=== PATIENT | male | born 1970 | race Caucasian/White ===

== ENCOUNTER 2018-10-31 20:02 | Emergency (ER) | payer MEDICAID, OTHER ==
[~2018-10-31] VITALS: Ht 180.3 cm; Wt 78.7 kg
[2018-10-31 20:08] VITALS: BP 145/96
--- NOTE | 2018-10-31 20:26 | NUR ---
PT HERE FOR RIGHT SHOULDER PAIN. PT REPORTS THAT HE LIFTED SOMETHING HEAVY. PT REPORTS NO TRUAMA.
[2018-10-31] MEDS ORDERED: KETOROLAC 30 MG/1 ML ONE (20:46)
[2018-10-31] MEDS ORDERED: KETOROLAC 60 MG/2 ML IM ONE (21:00)
--- NOTE | 2018-10-31 21:30 | NUR ---
Patient/Caregiver given discharge instructions and they have confirmed that they understand the instructions. Patient ambulatory with steady gait.
== END 2018-10-31 21:32 | disposition home or self-care (01) ==
LOC: ED 21:26
DX: M75.31 Calcific tendinitis of right shoulder (principal); X50.9XXA Other and unspecified overexertion or strenuous movements or postures, initial encounter; Y93.89 Activity, other specified; Y92.009 Unspecified place in unspecified non-institutional (private) residence as the place of occurrence of the external cause; Y99.8 Other external cause status
CPT/HCPCS: 73030; 96372; 99283; J1885

== ENCOUNTER 2020-07-25 14:42 | Emergency (ER) | payer MEDICAID, MEDICARE ==
[~2020-07-25] VITALS: Ht 180.3 cm; Wt 79.8 kg
--- NOTE | 2020-07-25 15:23 | NUR ---
PT BIB [facility] VIA POV. PT C/O ABDOMINAL PAIN, CRAMPING, AND BLOATING SINCE TODAY AT 10AM. DENIES N/V/D. PT GUARDING ON RUQ AND EPIGASTRIC AREA. PT STATES NO MEDICAL HX. PT RESTING IN [facility], MONITORING IN PLACE, NADN AT THIS TIME, [facility] AT BEDSIDE, PER PT NO NEEDS, WCTM.
--- NOTE | 2020-07-25 15:34 | NUR ---
PT'S [facility] CONTINUES TO COME UP TO NURSES STATION AND DOCTOR'S DESK, PT EDUCATED ON IMPORTANCE OF STAYING IN ROOM FOR HIPAA COMPLIANCE AND INFECTION CONTROL.
[2020-07-25] MEDS ORDERED: SODIUM CHLORIDE 0.9% 1,000ML IVBOLUS ONE (16:00)
[2020-07-25] MEDS ORDERED: MORPHINE SULFATE 4 MG/ML, 1ML IVPush PRN (16:00)
[2020-07-25] MEDS ORDERED: SODIUM CHLORIDE FLUSH 10ML SYR IVF ONE (16:00)
[2020-07-25] MEDS ORDERED: SODIUM CHLORIDE 0.9% 1,000 ML IV ONE (16:00)
[2020-07-25] MEDS ORDERED: ONDANSETRON 2MG/ML, 2ML IVPush ONE (16:00)
[2020-07-25 16:02] LABS: BASOPHILS % (AUTO) 0 % (0-1); EOSINOPHILS % (AUTO) 1 % (1-7); LYMPHOCYTES % (AUTO) 6 % (22-44); MEAN CORPUSCULAR HEMOGLOBIN 36.7 pg (27.5-34.5); MEAN CORPUSCULAR HGB CONC 35.8 g/dL (33.2-36.2); MEAN PLATELET VOLUME 7.9 fL (7.4-10.4); MONOCYTES % (AUTO) 6 % (2-9); NEUTROPHILS % (AUTO) 86 % (42-75); PLATELET COUNT 239 x10^3/uL (130-400); RED BLOOD COUNT 4.79 x10^6/uL (4.38-5.82); RED CELL DISTRIBUTION WIDTH 12.8 % (9.4-14.8)
[2020-07-25 16:13] LABS: ALANINE AMINOTRANSFERASE 61 U/L (12-78); ALBUMIN 3.9 g/dL (3.4-5.0); ANION GAP 9 mmol/L (5-15); CALCIUM 8.8 mg/dL (8.5-10.1); CHLORIDE 108 mmol/L (98-107)
[2020-07-25 16:15] LABS: ALKALINE PHOSPHATASE 68 U/L (45-117); BILIRUBIN,TOTAL 1.1 mg/dL (0.2-1.0); TOTAL PROTEIN 7.4 g/dL (6.4-8.2)
[2020-07-25 16:24] LABS: MD NO
[2020-07-25] MEDS ORDERED: MORPHINE SULFATE 4 MG/ML, 1ML ONE (16:24)
[2020-07-25] MEDS ORDERED: ONDANSETRON 2MG/ML, 2ML ONE (16:24)
[2020-07-25] MEDS ORDERED: OMNIPAQUE 350 MG/ML, 100ML BOTTLE ONE (17:07)
[2020-07-25] MEDS ORDERED: MAALOX/HYOSCYAMINE/LIDOCAINE 45 ML BTL PO ONE (17:30)
[2020-07-25] MEDS ORDERED: MAALOX/HYOSCYAMINE/LIDOCAINE 45 ML BTL ONE (17:50)
[2020-07-25 18:00] VITALS: BP 115/69
--- NOTE | 2020-07-25 18:06 | NUR ---
PT REC'VD DISCHARGE INSTRUCTIONS AND EDUCATION. PT AND SPOUSE HAD NO FURTHER QUESTIONS. PT AMBULATED TO DC AREA, STEADY GAIT.
== END 2020-07-25 18:08 | disposition home or self-care (01) ==
LOC: ED 15:20
DX: K29.20 Alcoholic gastritis without bleeding (principal); F10.10 Alcohol abuse, uncomplicated; R94.31 Abnormal electrocardiogram [ECG] [EKG]; Y90.9 Presence of alcohol in blood, level not specified
CPT/HCPCS: 36415; 74177; 80053; 80320; 83690; 85025; 93005; 96361; 96374; 96375; 99285; J2270; J2405; J7030; Q9967; G0480